=== PATIENT | female | born 1995 | race Caucasian/White ===

== ENCOUNTER 2018-12-30 15:40 | Emergency (ER) | payer OTHER ==
[2018-12-30] MEDS ORDERED: ONDANSETRON 4 MG INJ IV (16:18)
[2018-12-30] MEDS ORDERED: morphine 4 MG/ML VIAL IV (16:18)
[2018-12-30 16:27] LABS: ADD UMIC YES; UR ASCORBIC ACID NEGATIVE (NEGATIVE); UR BACTERIA FEW /HPF (NONE SEEN); UR BILIRUBIN (Dip) NEGATIVE (NEGATIVE); UR BLOOD (Dip) 1+ mg/dL (NEGATIVE); UR CLARITY SLIGHTLY CLOUDY (CLEAR); UR COLOR YELLOW (YELLOW); UR GLUCOSE (Dip) NEGATIVE (NEGATIVE); UR KETONES (Dip) 2+ mg/dL (NEGATIVE); UR LEUKOCYTE ESTERASE (Dip) 1+ Leu/ul (NEGATIVE); UR MUCUS FEW /HPF (NONE SEEN); UR NITRITE (Dip) NEGATIVE (NEGATIVE); UR RBC 9 /HPF (0-5); UR SPECIFIC GRAVITY (Dip) 1.025 (1.003-1.030); UR SQUAMOUS EPITHELIAL CELL FEW /HPF (FEW); UR TOTAL PROTEIN (Dip) NEGATIVE (NEGATIVE); UR UROBILINOGEN (Dip) 2+ mg/dL (NEGATIVE); UR WBC 39 /HPF (0-5)
== END 2018-12-30 18:40 | disposition home or self-care (01) ==
LOC: FTE 15:40
DX: N76.4 Abscess of vulva (principal); N39.0 Urinary tract infection, site not specified; Z86.69 Personal history of other diseases of the nervous system and sense organs
CPT/HCPCS: 56405; 81001; 84703; 87086; 99283-25

== ENCOUNTER 2019-02-10 11:38 | Emergency (ER) | payer OTHER ==
[2019-02-10] MEDS ORDERED: CLINDAMYCIN 600 MG INJ IV (13:00)
[2019-02-10] MEDS: SOD CHLORIDE 0.9% 500 ML IV (13:02)
[2019-02-10] MEDS: HYDROmorphONE 0.5 MG/0.5 ML SYG IV (13:02)
[2019-02-10] MEDS: DIPHENHYDRAMINE 50 MG INJ IV (13:04)
[2019-02-10] MEDS: LIDOCAINE 1% (MPF) 5 ML VIAL INFIL (13:04)
[2019-02-10] MEDS: LIDOCAINE 4% CR TOP (13:04)
[2019-02-10] MEDS ORDERED: CLINDAMYCIN 300 MG INJ IV (14:00)
[2019-02-10] MEDS: CLINDAMYCIN 600 MG/D5W (PMX) 50 ML IVPB (14:12)
== END 2019-02-10 15:11 | disposition home or self-care (01) ==
LOC: FTE 11:38
DX: N75.1 Abscess of Bartholin's gland (principal)
CPT/HCPCS: 56420; 96361; 96365; 96375; 99284-25